=== PATIENT | male | born 1960 | race Caucasian/White ===

== ENCOUNTER 2020-07-30 21:22 | Observation (INO) | payer MEDICAID ==
[~2020-07-30] VITALS: Ht 182.9 cm; Wt 155.2 kg
--- NOTE | 2020-07-30 21:34 | NUR ---
TX FROM [facility], PT REPORTED HERNANDEZ AND RIGHT SIDE FACIAL DROOP AND RIGHT SIDE WEAKNESS X 2 DAYS. PT IS A&O X4, PLACED ON VITALS MONITORS. FALL PRECAUTIONS IN PLACE, CALL LIGHT WITHIN REACH.
--- NOTE | 2020-07-30 22:17 | NUR ---
MRI SCREEN FAXED TO MRI DEPT.
--- NOTE | 2020-07-30 22:21 | NUR ---
PT TRANSPORTED TO MRI.
[2020-07-30] MEDS ORDERED: LORazepam 2 MG/ML, 1ML ONE (22:25)
[2020-07-30] MEDS ORDERED: LORazepam 2 MG/ML, 1ML IVPush ONE (23:00)
[2020-07-30] MEDS ORDERED: GADOTERATE 10 MMOL/20 ML SYR ONE (23:14)
--- NOTE | 2020-07-30 23:15 | NUR ---
Pt remains at MRI
--- NOTE | 2020-07-30 23:15 | NUR ---
[facility] WOULD LIKE A CALL BACK WITH UPDATE IN THE MORNING.
--- NOTE | 2020-07-30 23:59 | NUR ---
Pt back from MRI, Resting in room.
--- NOTE | 2020-07-31 00:09 | NUR ---
Bedside report to Alivia ZAMUDIO
--- NOTE | 2020-07-31 00:10 | NUR ---
RECEIVED BS REPORT FROM LIZZ ARANA TO ASSUME CARE OF PT. AT THIS TIME. PT. RESTING ON GURNEY WITH NO VISIBLE DISTRESS; SOME MRI READS STILL PENDING. ALL SAFETY MEASURES OBSERVED. SPO2, B/P, AND HEART MONITORS IN PLACE.
--- NOTE | 2020-07-31 00:22 | NUR ---
DR. F[facility]ER BACK IN TO DISCUSS PLAN FOR D/C WITH PT. R/T NORMAL MRI FINDINGS. PT. WAS A TRANSFER FROM [facility] AND WILL NEED TO WAIT FOR TO COME PICK HIM UP IN THE AM.
[2020-07-31] MEDS ORDERED: MECLIZINE CHEWABLE 25 MG TAB ONE (00:53)
[2020-07-31] MEDS ORDERED: MECLIZINE CHEWABLE 25 MG TAB PO ONE (01:00)
--- NOTE | 2020-07-31 01:08 | NUR ---
PT. PROVIDED WITH SANDWICH AND CHIPS FROM [employer] WITH OK FROM DR. FOSTER. PT. WAS MEDICATED PER JAN AND WILL ATTEMPT TO AMBULATE PT. SOON.
--- NOTE | 2020-07-31 01:58 | NUR ---
APPROXIMATELY 10 MINUTES AGO EDTA AND THIS RN ATTEMPTED TO AMBULATE PT. PT. VERY UNSTEADY AND UNABLE TO TAKE MORE THAN 2 STEPS WITHOUT SWAYING BACK AND FORTH; PT. REPORTS DIZZINESS INCREASING WHEN ATTEMPTING TO AMBULATE. DISCUSSED THIS WITH DR. FOSTER. DR. FOSTER IN TO ATTEMPT TO AMBULATE PT. AT THIS TIME WITH THE SAME RESULT. PLAN FOR ADMISSION.
--- NOTE | 2020-07-31 02:03 | NUR ---
BS REPORT TO LIZZ ZUÑIGA. PT. SITTING ON EDGE OF GURBRYSON WITH NO DISTRESS; PT. ATE ALL OF SANDWICH AND CHIPS THAT WERE PROVIDED. CALL LIGHT IN REACH.
[2020-07-31] MEDS: SODIUM CHLORIDE 0.9% 1,000 ML IV SCH ×2 (02:17→12:00)
[2020-07-31] MEDS ORDERED: morphine SULFATE 10 MG/ML, 1ML IVPush PRN (02:30)
[2020-07-31] MEDS ORDERED: ACETAMINOPHEN 325 MG TABLET PO PRN (02:30)
[2020-07-31] MEDS ORDERED: hydrALAzine 20 MG/ML, 1ML IVPush PRN (02:30)
[2020-07-31] MEDS ORDERED: DOCUSATE 100 MG CAPSULE PO PRN (02:30)
[2020-07-31] MEDS ORDERED: TRAZODONE 50MG TABLET PO PRN (02:30)
[2020-07-31] MEDS ORDERED: SODIUM CHLORIDE FLUSH 10ML SYR IVF PRN (02:30)
[2020-07-31] MEDS ORDERED: ONDANSETRON 2MG/ML, 2ML IVPush PRN (02:30)
[2020-07-31 03:06] VITALS: BP 150/81
[2020-07-31] MEDS: HEPARIN 5,000 UNITS/ML, 1ML SQ SCH ×2 (03:37→10:25)
[2020-07-31] MEDS ORDERED: BUTALB/APAP/CAFFEINE 50MG/325MG/40MG PO PRN (04:00)
[2020-07-31] MEDS ORDERED: ASPIRIN 81 MG TABLET EC PO SCH (06:00)
[2020-07-31] MEDS ORDERED: CETI-299 PO (06:21)
[2020-07-31] MEDS ORDERED: OMEP20CA20 PO (06:21)
[2020-07-31] MEDS ORDERED: Vit C (06:21)
[2020-07-31] MEDS ORDERED: VITA-73 PO (06:21)
[2020-07-31] MEDS ORDERED: MULT-257 PO (06:21)
[2020-07-31] MEDS ORDERED: HYDR-3245 PO (06:25)
[2020-07-31] MEDS ORDERED: CALC-451 PO (06:25)
[2020-07-31] MEDS ORDERED: POLY119P PO (06:25)
[2020-07-31] MEDS ORDERED: SPIR25TA5 PO (06:27)
[2020-07-31] MEDS ORDERED: LORA-445 PO (06:27)
[2020-07-31] MEDS ORDERED: ASPI-515 PO (06:27)
[2020-07-31] MEDS ORDERED: TORS20TA2 PO (06:27)
[2020-07-31 08:00] VITALS: BP 136/77
[2020-07-31] MEDS: MECLIZINE CHEWABLE 25 MG TAB PO SCH ×2 (08:41→15:27)
[2020-07-31] MEDS ORDERED: DIVALPROEX 250 MG TABLET.DR PO SCH (09:00)
[2020-07-31 12:56] VITALS: BP 106/68
[2020-07-31] MEDS ORDERED: BUTA-177 PO (13:05)
[2020-07-31] MEDS ORDERED: ATOR-2 PO (14:28)
[2020-07-31] MEDS ORDERED: ATORVASTATIN 80 MG TABLET PO SCH (21:00)
== END 2020-07-31 18:24 | disposition home or self-care (01) ==
LOC: ED 23:34 → INTOOBSV 07-31 02:29 → EDIP 07-31 02:29 → 5SO 07-31 03:25
PROVIDERS: ADMIT Student in an Organized Health Care Education/Training Program; ATTEND Family Medicine
DX: R51 Headache (principal); R42 Dizziness and giddiness; R60.0 Localized edema; R04.0 Epistaxis; R29.810 Facial weakness; K74.60 Unspecified cirrhosis of liver; I10 Essential (primary) hypertension; E78.5 Hyperlipidemia, unspecified; G47.33 Obstructive sleep apnea (adult) (pediatric); Z86.73 Personal history of transient ischemic attack (TIA), and cerebral infarction without residual deficits; Z79.899 Other long term (current) drug therapy
CPT/HCPCS: 70544; 70547; 70553; 96361; 96372; 96374; 96375; 97162; 97165; 99285; A9575; G0378; J1644; J2060; J2270; J7030